=== PATIENT | male | born 2000 | race Caucasian/White ===

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

== ENCOUNTER 2019-01-27 19:03 | Emergency (ER) | payer MEDICAID, OTHER, SELFPAY ==
[2019-01-27 20:44] VITALS: BP 127/69
[2019-01-28] MEDS ORDERED: IBUP-1114 PO (22:05)
[2019-01-28] MEDS ORDERED: PSEU1TAB3 PO (23:01)
[2019-01-28] MEDS ORDERED: IBUP-1022 PO (23:01)
[2019-01-28] MEDS ORDERED: FLON1SPR NARES (23:02)
== END 2019-01-27 20:53 | disposition home or self-care (01) ==
LOC: M ED 19:03
DX: H66.93 Otitis media, unspecified, bilateral (principal); H92.03 Otalgia, bilateral; Z96.22 Myringotomy tube(s) status

== ENCOUNTER 2019-01-28 22:01 | Emergency (ER) | payer MEDICAID ==
[~2019-01-28] VITALS: Ht 180.3 cm; Wt 88.6 kg
[2019-01-28 22:02] VITALS: BP 133/75
[2019-01-28] MEDS ORDERED: IBUP-1114 PO (22:05)
[2019-01-28] MEDS ORDERED: PSEUDOEPHEDRINE 30 MG TAB PO STA (22:56)
[2019-01-28] MEDS ORDERED: IBUPROFEN 600 MG TAB PO ONE (23:00)
[2019-01-28] MEDS ORDERED: PSEU1TAB3 PO (23:01)
[2019-01-28] MEDS ORDERED: IBUP-1022 PO (23:01)
[2019-01-28] MEDS ORDERED: FLON1SPR NARES (23:02)
== END 2019-01-28 23:14 | disposition home or self-care (01) ==
LOC: M ED 22:01
DX: H65.00 Acute serous otitis media, unspecified ear (principal)

== ENCOUNTER 2019-03-11 15:00 | Emergency (ER) | payer OTHER ==
[~2019-03-11] VITALS: Ht 180.3 cm; Wt 91.4 kg
[2019-03-11 15:00] VITALS: BP 137/71
[~2019-03-11 15:00] MED LIST: FLON1SPR NARES; IBUP-1022 PO; IBUP-1114 PO; PSEU1TAB3 PO
[2019-03-11] MEDS ORDERED: CYCL5TAB PO (16:41)
== END 2019-03-11 17:08 | disposition home or self-care (01) ==
LOC: M ED 15:00
DX: M62.830 Muscle spasm of back (principal); M54.5 Low back pain; Z79.899 Other long term (current) drug therapy

== ENCOUNTER 2019-03-31 01:48 | Emergency (ER) | payer OTHER ==
[~2019-03-31 01:48] MED LIST changes: +CYCL5TAB PO
[2019-03-31 02:47] LABS: BASO % 0.1 % (0.0-1.0); EOS # 0.1 10^3/uL (0.0-0.5); EOS % 0.5 % (0.0-3.0); HEMATOCRIT 44.1 % (42.0-52.0); HEMOGLOBIN 15.1 g/dl (13.5-17.5); LYMPH # 4.1 10^3/uL (1.5-5.0); LYMPH % 34.3 % (24.0-44.0); MEAN CORPUSCULAR HEMOGLOBIN 30.1 pg (27.0-33.0); MEAN CORPUSCULAR HGB CONC 34.2 g/dl (32.0-36.5); MONO # 1.1 10^3/uL (0.0-0.8); MONO % 9.5 % (0.0-5.0); NEUTROPHILS # 6.6 10^3/uL (1.5-8.5); NEUTROPHILS % 55.3 % (36.0-66.0); PLATELET COUNT, AUTOMATED 283 10^3/uL (150-450); RED BLOOD COUNT 5.01 10^6/uL (4.30-6.10)
[2019-03-31 02:50] LABS: INR 1.04; PROTHROMBIN TIME 13.3 SECONDS (11.8-14.0)
[2019-03-31 02:51] LABS: PARTIAL THROMBOPLASTIN TIME 30.5 SECONDS (25.0-38.4)
[2019-03-31] MEDS ORDERED: PANTOPRAZOLE 40MG INJ (PROTONIX) (C9113) IV ONE (03:00)
[2019-03-31] MEDS ORDERED: GI COCKTAIL 50ML BTL(HYOSCYAMINE/MAALOX/LIDOCAINE VISCOUS)(1:3:1) PO ONE (03:00)
[2019-03-31] MEDS ORDERED: IBUPROFEN 600 MG TAB PO ONE (03:00)
[2019-03-31 03:03] LABS: D-DIMER QUANT < 270 ng/ml (<500)
[2019-03-31 03:13] LABS: ALBUMIN 3.9 GM/DL (3.2-5.2); ALT/SGPT 35 U/L (12-78); BILIRUBIN,DIRECT 0.1 MG/DL (0.0-0.2); BILIRUBIN,TOTAL 0.4 MG/DL (0.2-1.0); BLOOD UREA NITROGEN 13 MG/DL (7-18); CALCIUM LEVEL 9.3 MG/DL (8.5-10.1); CARBON DIOXIDE LEVEL 26 MEQ/L (21-32); CHLORIDE LEVEL 106 MEQ/L (98-107); CK-MB VALUE MASS 3.9 NG/ML (<3.6); CPK CREATINE PHOSPHOKINASE 1278 U/L (39-308); CREATININE FOR GFR 1.05 MG/DL (0.70-1.30); FREE T4 1.07 NG/DL (0.78-1.33); GLUCOSE, FASTING 84 MG/DL (70-100); LIPASE 154 U/L (73-393); MAGNESIUM LEVEL 1.9 MG/DL (1.4-2.0); MB/CK RELATIVE INDEX 0.31 (< OR =4); PHOSPHORUS LEVEL 3.6 MG/DL (2.5-4.9); POTASSIUM SERUM 3.4 MEQ/L (3.5-5.1); SODIUM LEVEL 142 MEQ/L (136-145); TOTAL PROTEIN 7.1 GM/DL (6.4-8.2); TROPONIN I < 0.02 NG/ML (< 0.10)
[2019-03-31] MEDS ORDERED: NS 1,000 ML IV ONE ×2 (03:30→05:00)
[2019-03-31] MEDS ORDERED: POTASSIUM CHLORIDE 10 MEQ SR TABLET PO ONE (03:30)
--- NOTE | 2019-03-31 03:36 | REPVR ---
PROCEDURE INFORMATION: Exam: XR Chest, 2 Views Exam date and time: 03/31/2019 3:00 AM Clinical history: 18 years old, male; Chest pain TECHNIQUE: Imaging protocol: XR of the chest Views: 2 views. COMPARISON: CR Chest, 2 view PA, Lat 07/03/2015 2:49 PM FINDINGS: Lungs: Unremarkable. No consolidation. Pleural space: Unremarkable. No pleural effusion. No pneumothorax. Heart/Mediastinum: Unremarkable. No cardiomegaly. Bones/joints: Unremarkable. IMPRESSION: Negative chest without change from 07/03/2015. Electronically signed by: Joaquin Ramos On 03/31/2019 03:35:50 AM
[2019-03-31 04:23] LABS: AMPHETAMINES LEVEL URINE NEGATIVE (NEGATIVE); BARBITURATES URINE NEGATIVE (NEGATIVE); BENZODIAZEPINES URINE NEGATIVE (NEGATIVE); CANNABINOIDS URINE NEGATIVE (NEGATIVE); COCAINE METABOLITE URINE NEGATIVE (NEGATIVE); METHADONE URINE NEGATIVE (NEGATIVE); OPIATES URINE NEGATIVE (NEGATIVE); PHENCYCLIDINE URINE NEGATIVE (NEGATIVE)
[2019-03-31] MEDS ORDERED: PROT1TAB2 PO (07:12)
[2019-03-31 07:34] VITALS: BP 101/57
--- NOTE | 2019-04-13 07:16 | ECGEPIP ---
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
== END 2019-03-31 07:38 | disposition home or self-care (01) ==
LOC: M ED 01:48
DX: R10.13 Epigastric pain (principal)
CPT/HCPCS: 71046; 80048; 80076; 80307; 82550; 82553; 83690; 83735; 84100; 84439; 84443; 85025; 85379; 85610; 85730; 93005; 93041; 94760; 96361; 96374; 99285; C9113

== ENCOUNTER 2019-09-15 10:47 | Emergency (ER) | payer OTHER ==
[~2019-09-15] VITALS: Ht 180.3 cm; Wt 89.6 kg
[2019-09-15 10:47] VITALS: BP 140/72
[~2019-09-15 10:47] MED LIST changes: +PROT1TAB2 PO
[2019-09-15] MEDS ORDERED: OXYMETAZOLINE NASAL SPRAY (AFRIN) ONE (11:15)
== END 2019-09-15 11:59 | disposition home or self-care (01) ==
LOC: M ED 10:47
DX: R04.0 Epistaxis (principal)

== ENCOUNTER → 2019-10-12 | Outpatient (CLI) | payer OTHER | LOC: M LABSMTC 09:53 → EEVIPCON 09:53 | PROVIDERS: ATTEND Family Medicine | DX: Z11.59 Encounter for screening for other viral diseases (principal); Z20.828 Contact with and (suspected) exposure to other viral communicable diseases ==

== ENCOUNTER 2019-11-12 05:47 | Emergency (ER) | payer OTHER ==
[~2019-11-12] VITALS: Ht 180.3 cm; Wt 91.8 kg
[2019-11-12 07:05] VITALS: BP 118/63
--- NOTE | 2019-11-12 07:05 | REP ---
Clinical: Trauma. Technique: AP, lateral, bilateral oblique views right hand . Findings: The osseous structures and joint spaces are intact and normal. There is no evidence for acute fracture or dislocation. Surrounding soft tissues are unremarkable. No subcutaneous emphysema or radiodense foreign body. Impression: Normal right hand series . No acute fracture or dislocation. Electronically Signed by Rangel Boyer MD 11/12/2019 06:57 A
== END 2019-11-12 07:20 | disposition home or self-care (01) ==
LOC: M ED 05:47

== ENCOUNTER 2019-11-20 09:41 | Emergency (ER) | payer OTHER ==
[~2019-11-20] VITALS: Ht 180.3 cm; Wt 98.6 kg
[2019-11-20] MEDS ORDERED: APAP325T4 PO (09:51)
[2019-11-20] MEDS ORDERED: IBUPROFEN 800 MG TAB PO ONE (10:15)
--- NOTE | 2019-11-20 10:57 | REP ---
Clinical: Pain at the base of the third metacarpal bone with recent trauma. Technique: Axial noncontrast images of the right hand/wrist with coronal and sagittal re-formations. Findings: The osseous structures of the hand and wrist including the distal radius and ulna are intact and there is no evidence for acute fracture or dislocation by CT evaluation. The surrounding soft tissues including musculotendinous structures appear intact and normal by CT evaluation. No significant subcutaneous inflammatory/traumatic stranding. No obvious focal fluid collection. No foreign body. Impression: Osseous structures appear intact and there is no obvious acute fracture or dislocation through the right hand/wrist. Electronically Signed by Rangel Boyer MD 11/20/2019 10:49 A
[2019-11-20 11:04] VITALS: BP 133/75
== END 2019-11-20 11:10 | disposition home or self-care (01) ==
LOC: M ED 09:41
DX: S60.221A Contusion of right hand, initial encounter (principal); W22.8XXA Striking against or struck by other objects, initial encounter; Y92.89 Other specified places as the place of occurrence of the external cause; Y93.75 Activity, martial arts

== ENCOUNTER → 2019-11-26 | Outpatient (CLI) | payer OTHER ==
[~2019-11-26] MED LIST changes: +APAP325T4 PO
== END ==
LOC: M LABSMTC 12:20
PROVIDERS: ATTEND Family Medicine
DX: Z11.59 Encounter for screening for other viral diseases (principal)
CPT/HCPCS: C9803; U0003

== ENCOUNTER 2019-12-24 02:47 | Emergency (ER) | payer OTHER ==
[~2019-12-24] VITALS: Ht 180.3 cm; Wt 100.0 kg
[2019-12-24 02:47] VITALS: BP 139/62
== END 2019-12-24 04:46 | disposition home or self-care (01) ==
LOC: M ED 02:47
DX: L55.0 Sunburn of first degree (principal); Z91.048 Other nonmedicinal substance allergy status

== ENCOUNTER 2020-01-25 20:45 | Emergency (ER) | payer OTHER | END 2020-01-25 23:27 | disposition home or self-care (01) | LOC: M ED 20:45 | DX: M54.5 Low back pain (principal); W01.0XXA Fall on same level from slipping, tripping and stumbling without subsequent striking against object, initial encounter; Y92.9 Unspecified place or not applicable; Y93.9 Activity, unspecified; Y99.9 Unspecified external cause status ==

== ENCOUNTER 2020-02-01 19:30 | Emergency (ER) | payer OTHER ==
[2020-02-01] MEDS ORDERED: diphenhydrAMINE 25MG CAP ONE (22:23)
== END 2020-02-01 22:05 | disposition home or self-care (01) ==
LOC: M ED 19:30
DX: T78.1XXA Other adverse food reactions, not elsewhere classified, initial encounter (principal); Z91.018 Allergy to other foods

== ENCOUNTER 2020-02-10 20:35 | Emergency (ER) | payer OTHER ==
[2020-02-11] MEDS ORDERED: diphenhydrAMINE 50MG/ML VIAL (J1200) ONE (01:00)
[2020-02-11] MEDS ORDERED: METOCLOPRAMIDE INJ 10MG/2ML VIAL (J2765 PER 1) ONE (01:00)
[2020-02-11] MEDS ORDERED: KETOROLAC 30 MG/ML 1ML VIAL ONE (01:00)
[2020-02-11] MEDS ORDERED: METOCLOPRAMIDE INJ 10MG/2ML VIAL (J2765 PER 1) As Ordered ONE (01:04)
[2020-02-11] MEDS ORDERED: diphenhydrAMINE 50MG/ML VIAL (J1200) As Ordered ONE (01:05)
[2020-02-11] MEDS ORDERED: KETOROLAC 30 MG/ML 1ML VIAL As Ordered ONE (01:05)
[2020-02-11] MEDS ORDERED: methylPREDNISolone 125MG 2ML VIAL ONE (02:00)
[2020-02-11] MEDS ORDERED: methylPREDNISolone 125MG 2ML VIAL As Ordered ONE (02:06)
[2020-03-27 10:32] LABS: BASO % 0.3 % (0.0-1.0); EOS # 0.1 10^3/uL (0.0-0.5); EOS % 0.7 % (0.0-3.0); HEMATOCRIT 42.1 % (42.0-52.0); HEMOGLOBIN 14.3 g/dl (13.5-17.5); LYMPH # 3.6 10^3/uL (1.5-5.0); LYMPH % 29.6 % (24.0-44.0); MEAN CORPUSCULAR HEMOGLOBIN 29.9 pg (27.0-33.0); MEAN CORPUSCULAR VOLUME 88.1 fl (80.0-96.0); MONO % 8.4 % (0.0-5.0); NEUTROPHILS # 7.4 10^3/uL (1.5-8.5); NEUTROPHILS % 60.6 % (36.0-66.0); PLATELET COUNT, AUTOMATED 286 10^3/uL (150-450); RED BLOOD COUNT 4.78 10^6/uL (4.30-6.10); WHITE BLOOD COUNT 12.1 10^3/uL (4.0-10.0)
[2020-05-05 13:52] LABS: BLOOD UREA NITROGEN 11 MG/DL (7-18); CALCIUM LEVEL 9.4 MG/DL (8.5-10.1); CARBON DIOXIDE LEVEL 29 MEQ/L (21-32); CHLORIDE LEVEL 107 MEQ/L (98-107); CREATININE FOR GFR 0.89 MG/DL (0.70-1.30); GLUCOSE, FASTING 79 MG/DL (70-100); POTASSIUM SERUM 4.1 MEQ/L (3.5-5.1); SODIUM LEVEL 141 MEQ/L (136-145)
== END 2020-02-11 02:20 | disposition home or self-care (01) ==
LOC: M ED 20:35
DX: R51 Headache (principal); Z91.018 Allergy to other foods; Z91.89 Other specified personal risk factors, not elsewhere classified; G43.909 Migraine, unspecified, not intractable, without status migrainosus; Z87.820 Personal history of traumatic brain injury
CPT/HCPCS: 70450; 80048; 85025; 96361; 96374; 96375; 99284; J1200; J1885; J2765; J2930

== ENCOUNTER 2020-03-02 20:35 | Emergency (ER) | payer OTHER ==
[~2020-03-02] VITALS: Ht 182.9 cm; Wt 107.2 kg
[2020-03-02] MEDS ORDERED: IBUP-1022 PO (20:44)
--- NOTE | 2020-03-02 21:55 | REPVR ---
PROCEDURE INFORMATION: Exam: XR Chest, 2 Views Exam date and time: 03/02/2020 9:27 PM Age: 19 years old Clinical indication: Other: Chest pain TECHNIQUE: Imaging protocol: XR of the chest Views: 2 views. COMPARISON: CR Chest, 2 view PA, Lat 03/31/2019 2:49 AM FINDINGS: Lungs: Unremarkable. No consolidation. Pleural space: Unremarkable. No pleural effusion. No pneumothorax. Heart/Mediastinum: Unremarkable. No cardiomegaly. Bones/joints: Unremarkable. IMPRESSION: Negative chest. Electronically signed by: Joaquin Ramos On 03/02/2020 21:55:11 PM
[2020-03-02 22:14] VITALS: BP 124/67
--- NOTE | 2020-03-12 10:17 | ECGEPIP ---
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
== END 2020-03-02 22:15 | disposition home or self-care (01) ==
LOC: M ED 20:35
DX: R07.89 Other chest pain (principal); Z91.048 Other nonmedicinal substance allergy status

== ENCOUNTER 2020-09-27 10:27 | Emergency (ER) | payer OTHER ==
[~2020-09-27] VITALS: Ht 182.9 cm; Wt 112.4 kg
[2020-09-27 11:42] LABS: BASO % 0.2 % (0.0-1.0); EOS % 0.3 % (0.0-3.0); HEMOGLOBIN 16.2 g/dl (13.5-17.5); LYMPH # 2.2 10^3/uL (1.5-5.0); LYMPH % 20.4 % (24.0-44.0); MEAN CORPUSCULAR HEMOGLOBIN 29.3 pg (27.0-33.0); MEAN CORPUSCULAR HGB CONC 33.1 g/dl (32.0-36.5); MEAN CORPUSCULAR VOLUME 88.8 fl (80.0-96.0); MONO # 0.8 10^3/uL (0.0-0.8); MONO % 7.1 % (2.0-8.0); NEUTROPHILS # 7.8 10^3/uL (1.5-8.5); NEUTROPHILS % 71.5 % (36.0-66.0); PLATELET COUNT, AUTOMATED 306 10^3/uL (150-450); RED BLOOD COUNT 5.52 10^6/uL (4.30-6.10); WHITE BLOOD COUNT 10.9 10^3/uL (4.0-10.0)
[2020-09-27 11:52] LABS: INR 0.87
[2020-09-27 12:07] LABS: BLOOD UREA NITROGEN 10 MG/DL (7-18); CALCIUM LEVEL 10.1 MG/DL (8.5-10.1); CARBON DIOXIDE LEVEL 29 MEQ/L (21-32); CHLORIDE LEVEL 106 MEQ/L (98-107); CREATININE FOR GFR 0.75 MG/DL (0.70-1.30); GLOMERULAR FILTRATION RATE > 60.0 (>60); GLUCOSE, FASTING 93 MG/DL (70-100); POTASSIUM SERUM 4.4 MEQ/L (3.5-5.1); SODIUM LEVEL 140 MEQ/L (136-145)
[2020-09-27] MEDS ORDERED: SODIUM CHLORIDE NASAL 0.65% SPRAY BTL (OCEAN) STA (12:13)
[2020-09-27] MEDS ORDERED: OXYMETAZOLINE 0.05% NASAL SPRAY (AFRIN) ONE (12:15)
[2020-09-27 12:19] VITALS: BP 140/84
== END 2020-09-27 12:33 | disposition home or self-care (01) ==
LOC: M ED 10:27
DX: R04.0 Epistaxis (principal); Z91.89 Other specified personal risk factors, not elsewhere classified

== ENCOUNTER 2020-11-01 16:38 | Emergency (ER) | payer OTHER ==
[~2020-11-01] VITALS: Ht 182.9 cm; Wt 114.7 kg
[2020-11-01] MEDS ORDERED: KETOROLAC 60MG 2ML VIAL IM ONE (18:45)
[2020-11-01] MEDS ORDERED: methocarbamoL 750 MG TAB PO ONE (18:45)
[2020-11-01] MEDS ORDERED: METH-1165 PO (18:54)
[2020-11-01 19:11] VITALS: BP 135/84
== END 2020-11-01 19:19 | disposition home or self-care (01) ==
LOC: M ED 16:38
DX: S46.001A Unspecified injury of muscle(s) and tendon(s) of the rotator cuff of right shoulder, initial encounter (principal); X58.XXXA Exposure to other specified factors, initial encounter; Y92.9 Unspecified place or not applicable; Y93.9 Activity, unspecified; Y99.9 Unspecified external cause status; Z91.89 Other specified personal risk factors, not elsewhere classified
CPT/HCPCS: 96372; 99283; J1885

== ENCOUNTER 2020-11-05 17:34 | Emergency (ER) | payer OTHER ==
[~2020-11-05] VITALS: Ht 182.9 cm; Wt 114.8 kg
[2020-11-05 17:34] VITALS: BP 134/81
[~2020-11-05 17:34] MED LIST changes: +METH-1165 PO
== END 2020-11-05 19:19 | disposition home or self-care (01) ==
LOC: M ED 17:34
DX: R07.0 Pain in throat (principal); B34.8 Other viral infections of unspecified site; Z11.52 Encounter for screening for COVID-19; Z91.89 Other specified personal risk factors, not elsewhere classified
CPT/HCPCS: 87880; 99284; U0003

== ENCOUNTER 2020-12-16 18:29 | Emergency (ER) | payer OTHER ==
[~2020-12-16] VITALS: Ht 182.9 cm; Wt 115.6 kg
[2020-12-16 21:13] VITALS: BP 127/77
== END 2020-12-16 21:57 | disposition home or self-care (01) ==
LOC: M ED 18:29
DX: R51.9 Headache, unspecified (principal); G89.29 Other chronic pain

== ENCOUNTER 2020-12-17 03:43 | Emergency (ER) | payer OTHER ==
[~2020-12-17] VITALS: Ht 182.9 cm; Wt 113.6 kg
[2020-12-17 04:08] LABS: BASO % 0.3 % (0.0-1.0); EOS # 0.1 10^3/uL (0.0-0.5); EOS % 0.7 % (0.0-3.0); HEMATOCRIT 45.6 % (42.0-52.0); HEMOGLOBIN 14.9 g/dl (13.5-17.5); LYMPH % 33.9 % (24.0-44.0); MEAN CORPUSCULAR HEMOGLOBIN 28.5 pg (27.0-33.0); MEAN CORPUSCULAR HGB CONC 32.7 g/dl (32.0-36.5); MEAN CORPUSCULAR VOLUME 87.2 fl (80.0-96.0); MONO # 1.1 10^3/uL (0.0-0.8); MONO % 9.6 % (2.0-8.0); NEUTROPHILS # 6.5 10^3/uL (1.5-8.5); NEUTROPHILS % 55.1 % (36.0-66.0); PLATELET COUNT, AUTOMATED 306 10^3/uL (150-450); RED BLOOD COUNT 5.23 10^6/uL (4.30-6.10); WHITE BLOOD COUNT 11.8 10^3/uL (4.0-10.0)
[2020-12-17 04:42] LABS: BLOOD UREA NITROGEN 12 MG/DL (7-18); CALCIUM LEVEL 9.1 MG/DL (8.5-10.1); CARBON DIOXIDE LEVEL 27 MEQ/L (21-32); CHLORIDE LEVEL 110 MEQ/L (98-107); CK-MB VALUE MASS < 1.0 NG/ML (<3.6); CPK CREATINE PHOSPHOKINASE 126 U/L (39-308); CREATININE FOR GFR 0.82 MG/DL (0.70-1.30); GLOMERULAR FILTRATION RATE > 60.0 (>60); GLUCOSE, FASTING 109 MG/DL (70-100); MB/CK RELATIVE INDEX 0.79 (< OR =4); POTASSIUM SERUM 4.3 MEQ/L (3.5-5.1); SODIUM LEVEL 143 MEQ/L (136-145); TROPONIN I < 0.02 NG/ML (< 0.10)
--- NOTE | 2020-12-17 06:38 | REPVR ---
PROCEDURE INFORMATION: Exam: XR Chest Exam date and time: 12/17/2020 4:18 AM Age: 20 years old Clinical indication: Other: Chest pain TECHNIQUE: Imaging protocol: XR of the chest. Views: 1 view. COMPARISON: CR Chest, 2 view PA, Lat 03/02/2020 9:20 PM FINDINGS: Lungs: Unremarkable. No consolidation. Pleural spaces: Unremarkable. No pleural effusion. No pneumothorax. Heart/Mediastinum: Unremarkable. No cardiomegaly. Bones/joints: Unremarkable. IMPRESSION: No acute findings. Electronically signed by: Javi Carroll On 12/17/2020 06:38:21 AM
[2020-12-17 07:29] LABS: CK-MB VALUE MASS < 1.0 NG/ML (<3.6); CPK CREATINE PHOSPHOKINASE 94 U/L (39-308); MB/CK RELATIVE INDEX 1.06 (< OR =4); TROPONIN I < 0.02 NG/ML (< 0.10)
[2020-12-17] MEDS ORDERED: KETOROLAC 30 MG/ML 1ML VIAL IV ONE (08:30)
[2020-12-17 09:30] VITALS: BP 108/57
--- NOTE | 2020-12-17 14:32 | ECGEPIP ---
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
--- NOTE | 2020-12-17 14:33 | ECGEPIP ---
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 Order Number: [id number] Reading MD: Ronel Merlos Measurements Intervals [place] Rate: 87 P: 41 NC: 144 QRS: -3 QRSD: 80 T: 4 QT: 348 QTc: 418 Interpretive Statements Normal sinus rhythm Minimal voltage criteria for LVH, may be normal variant ( R in aVL ) similar 12/17/20 Electronically Signed on 12-17-2020 14:32:43 EDT by Ronel Merlos
== END 2020-12-17 09:30 | disposition home or self-care (01) ==
LOC: M ED 03:43
DX: R07.9 Chest pain, unspecified (principal); Z91.048 Other nonmedicinal substance allergy status
CPT/HCPCS: 71045; 80048; 82550; 82553; 85025; 85379; 93005; 93041; 94760; 96374; 99285; J1885